=== PATIENT | female | born 1945 | race Caucasian/White ===

== ENCOUNTER → 2017-08-29 | Outpatient (CLI) | payer MEDICARE ==
--- NOTE | 2017-08-29 13:16 | US ---
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 TECHNIQUE: Multiple sonographic images of the thyroid gland are obtained. FINDINGS: GLAND SIZE: Right Lobe: 5.0 x 1.7 x 1.8 cm Overall Parenchyma: heterogenous Left Lobe: 5.3 x 1.7 x 1.1 cm Overall Parenchyma: heterogeneous Isthmus Thickness: 0.3 cm NODULES RIGHT: # of nodules measured on right: 1 1. 1.0 X 0.6 x 0.8 cm isoechoic solid nodule at the lateral lower pole which slightly blends with t he surrounding parenchyma. This demonstrates no intranodular vascularity. Prior size: 0.9 x 0.7 x 0.8 cm LEFT: # of nodules measured on left: 0 ISTHMUS: # of nodules measured in the isthmus: 1 left isthmus 1. 0.4 X 0.4 x 0.2 cm hypoechoic , possibly cystic nodule with well-defined margins. This nodule i s wider than tall and shows no intranodular vascularity. Prior size: no previous Bilateral neck scanned, no evidence of lymphadenopathy. IMPRESSION: 1. A 10 x 6 mm solid nodule in the right lower pole is essentially stable previously measuring 9 x 7 mm. 2. A new hypoechoic, possibly cystic 4 mm nodule in the left isthmus.
== END | disposition home or self-care (01) ==
LOC: RADUSWWP 12:06
PROVIDERS: ATTEND Internal Medicine Endocrinology, Diabetes & Metabolism
DX: E04.1 Nontoxic single thyroid nodule (principal); E03.8 Other specified hypothyroidism
CPT/HCPCS: 36415; 76536; 84443

== ENCOUNTER → 2019-03-23 | Outpatient (CLI) | payer MEDICARE ==
--- NOTE | 2019-03-23 17:07 | US ---
EXAMINATION TYPE: US thyroid st tissue head/neck DATE OF EXAM: 03/23/2019 COMPARISON: 08/29/2017 CLINICAL HISTORY: 73-year-old female E03.8 Specified Hypothyroidism, E04.1. Nontoxic single thyroid n odule. Hypothyroidism. Pt on levothyroxine. TECHNIQUE: Multiple sonographic images of the thyroid gland are obtained. FINDINGS: GLAND SIZE: Right Lobe: 5.8 x 1.6 x 1.8 cm Overall Parenchyma: heterogenous Left Lobe: 5.8 x 1.5 x 1.8 cm Overall Parenchyma: heterogeneous Isthmus Thickness: 0.24 cm NODULES RIGHT: # of nodules measured on right: 1 1. 1.1 X 0.6 x 0.5 cm isoechoic-hypoechoic solid nodule at the lower pole with poorly defined leonard ns which blends in with surrounding parenchyma. This nodule is wider than tall and shows no intranod ular vascularity. Prior size: 1.0 x 0.6 x 0.8 cm LEFT: # of nodules measured on left: 0 ISTHMUS: # of nodules measured in the isthmus: 1 1. 0.4 X 0.3 x 0.2 cm hypoechoic mixed nodule at the lower pole with well-defined margins. This no dule is wider than tall and shows no intranodular vascularity. Prior size: 0.4 x 0.4 x 0.2 cm Bilateral neck scanned, no evidence of lymphadenopathy. IMPRESSION: Thyromegaly with heterogeneous parenchyma, correlate for goiter. A couple nodules are unchanged, larg est measuring 1.1 x 0.6 cm (versus 1.0 x 0.8 cm, previously).
== END | disposition home or self-care (01) ==
LOC: RADUSWWP 13:33
PROVIDERS: ATTEND Internal Medicine Endocrinology, Diabetes & Metabolism
DX: E04.1 Nontoxic single thyroid nodule (principal); E03.8 Other specified hypothyroidism
CPT/HCPCS: 76536